=== PATIENT | female | born 1985 | race Caucasian/White ===

== ENCOUNTER 2016-12-15 12:21 | Observation (INO) | payer BC ==
--- NOTE | ~2016-12-15 | HP ---
History And Physical [facility] [address] [place]. [address] NAME: CORNELIA NUNEZ : 87 STATUS : ADM IN [facility]#: [id number] AGE: 31 ADM/REG DATE : 12/15/16 MR#: [id number] REPORT SERV DATE: 12/15/16 DICTATED BY: LIYA MAR DATE: 12/15/16 REPORT STATUS : Draft TRANSCRIBED BY: ROMAIN DATE: 12/15/16 DATE OF ADMISSION: 12/15/2016 CHIEF COMPLAINT: Atypical chest pain. 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 She was at work this morning around 0900 hours in Surgery, and she developed a "pulled muscle" sensation from her chest to her back. She describes it as a "sharp pain." It did not radiate elsewhere. She denies shortness of breath, nausea, diaphoresis, dizziness, or belching; although she states initially it was difficult to catch her breath. At its most intense, she rates the discomfort an 8/10. At the time of interview in the ER, she rates it a 5/10. She states it lasted a few seconds. It was worse with movement of her neck and deep inspiration. She denies any personal history of myocardial infarction, stroke, DVT, or pulmonary embolus. The patient denies any recent fever or chills, no palpitations, no syncopal episodes. Denies PND or orthopnea. PAST MEDICAL HISTORY: None. PAST SURGICAL HISTORY: None. SOCIAL HISTORY: She is single with one child. 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 Ran half marathon one to two months ago, and played a full round of disc golf yesterday with her friend. Denies tobacco, alcohol, or illicits. FAMILY HISTORY: Father at the age of 60 of cirrhosis of the liver. Paternal uncles with reportedly early CAD. No other embolic events reported in first-degree relatives. REVIEW OF SYSTEMS: A 14-point review of systems was performed, significant for HPI including consumption of coffee and peanut butter. A table spoon of peanut butter at 0530 hours this morning. Nitrol paste removed from chest wall at 1300 hours by disclination. Otherwise, complete review of systems was obtained and negative. ALLERGIES: PERTUSSIS VACCINE. HOME MEDICATIONS: Excedrin extra-strength p.r.n. PHYSICAL EXAMINATION: BLOOD PRESSURE: 102/58, PULSE: 75, RESPIRATORY RATE: 14, TEMPERATURE: 98, O2 saturation 100% on room air. HEIGHT: 5 feet 2 inches. WEIGHT: 110 pounds. GENERAL: Cooperative, in no apparent distress. HEENT: Pupils 2 mm, sclera nonicteric. Nares patent. Moist mucous membranes. No xanthelasma. History And Physical [address] [place]. [address] NAME: CORNELIA NUNEZ : 87 STATUS : ADM IN [facility]#: [id number] AGE: 31 ADM/REG DATE : 12/15/16 MR#: [id number] REPORT SERV DATE: 12/15/16 DICTATED BY: LIYA MAR DATE: 12/15/16 REPORT STATUS : Draft TRANSCRIBED BY: ROMAIN DATE: 12/15/16 NECK: Trachea midline, no thyromegaly. No JVD. No bruits. LYMPH: No cervical lymphadenopathy. No supraclavicular lymphadenopathy. RESPIRATORY: Unlabored respirations. Breath sounds clear bilaterally to posterior auscultation. No wheezes or rhonchi. CARDIOVASCULAR: Regular rate. No murmur, rub or gallop appreciated. EXTREMITIES: Without edema. Pulses 2+ bilaterally. ABDOMEN: Soft, nontender, nondistended, normal bowel sounds auscultated throughout. No organomegaly. SKIN: Warm, dry extremities. No pallor, or cyanosis. PSYCHIATRIC: Appropriate affect. Alert, oriented x3. LABORATORY DATA: Troponin is less than 0.02 twice. Potassium 3.9, BUN 9, creatinine 0.63, glucose 82, and magnesium 2.0. WBC of 5.0, hemoglobin 13.6, hematocrit 39.3, and platelet count 193,000. D-dimer is less than 0.27. EKG, sinus rhythm. ASSESSMENT AND PLAN: 1. Atypical chest pain. The patient has had two sets of cardiac markers negative. Second EKG is pending. We will continue to hold n.p.o. for exercise treadmill today. The patient will be discharged home if negative study. Most of these symptoms seemed to be either pleuritic or musculoskeletal in nature. Although, not reproducible on exam. The patient is instructed that if the stress test is negative, short-term use of NSAIDs and palliative measures like hot shower or heating pad for discomfort. 2. Question musculoskeletal component, although not reproducible. The patient states that she played disc golf yesterday with no problem during the activity, but some discomfort with a deep breath and/or movement. 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 We would recommend short-term and NSAIDs and heat compresses as warranted, followup with the PCP. ROSALIA/ROMAIN DUSTIN [place], [employer]EL[employer]BC / [id number] CC: DUSITN [place], [employer]BC Niya Mallory M.D.
[2016-12-15 10:30] LABS: BASOPHILS 0.4 %; BASOPHILS ABSOLUTE 0.02 10/3/uL (0.0-0.16); EOSINOPHILS 1.8 %; EOSINOPHILS ABSOLUTE 0.09 10/3/uL (0.0-0.53); ER CBC TAT 0 Hrs 07 Mins; HEMATOCRIT 39.3 % (36.0-48.0); HEMOGLOBIN 13.6 g/dL (12.0-16.0); IMMATURE GRANULOCYTES 0.2 %; IMMATURE GRANULOCYTES ABSOLUTE 0.01 10/3/uL (0.0-0.11); LYMPHOCYTES 27.6 %; LYMPHOCYTES ABSOLUTE 1.39 10/3/uL (0.67-4.30); MEAN CORPUS HGB CONC 34.6 g/dL (32.0-36.0); MEAN CORPUSCULAR HEMOGLOB 32.5 pg (26.0-34.0); MEAN CORPUSCULAR VOLUME 93.8 fL (80-100); MEAN PLATELET VOLUME 10.3 fL (9.2-13.0); MONOCYTES 9.9 %; NEUTROPHILS 60.1 %; NEUTROPHILS ABSOLUTE 3.03 10/3/uL (2.02-8.40); PLATELET COUNT 193 10/3/uL (150-400); RBC DISTRIBUTION WIDTH 11.8 % (12.0-16.0); RED CELL COUNT 4.19 10/6/uL (4.0-5.6)
[2016-12-15 10:31] LABS: MANUAL DIFF NO %
[2016-12-15 10:38] LABS: INTERNATIONAL NORMAL RATI 1.1 UNITS (-); PARTIAL THROMBO TIME 27.9 SEC (22.5-37.2)
[2016-12-15 10:49] LABS: BUN (BLOOD UREA NITROGEN) 9 MG/DL (6-23); CALCIUM, SERUM 8.9 MG/DL (8.5-10.4); CHEST PAIN PROFILE TAT 0 Hrs 26 Mins; CHLORIDE, SERUM 104 MMOL/L (96-112); CO2 (CARBON DIOXIDE) 27 MMOL/L (24-34); CREATININE 0.63 MG/DL (0.55-1.02); GFR AFRICAN AMERICAN 140 ML/MIN (>=60); GFR NON AFRICAN AMERICAN 120 ML/MIN (>=60); GLUCOSE, SERUM 82 MG/DL (60-99); POTASSIUM, SERUM 3.9 MMOL/L (3.5-5.3); SODIUM, SERUM 140 MMOL/L (135-148); TROPONIN I <0.02 NG/ML (<0.05)
[2016-12-15 12:15] LABS: D-DIMER QUANTITATIVE < 0.27 ug/mLFEU (< 0.50)
[2016-12-15] MEDS ORDERED: EXCEDRIN EXTRA1 EACH PO (12:32)
== END 2016-12-15 16:14 | disposition home or self-care (01) ==
LOC: ER 12:21 → CDU1 12:44 → CDU2 13:16
PROVIDERS: Hospitalist
DX: R07.89 Other chest pain (principal); F41.9 Anxiety disorder, unspecified; Z88.8 Allergy status to other drugs, medicaments and biological substances; Z79.899 Other long term (current) drug therapy; Z98.890 Other specified postprocedural states
CPT/HCPCS: 71020; 80048; 83735; 84484; 85025; 85379; 85610; 85730; 93005; 93017; 99285; A9270-GY; G0378